=== PATIENT | female | born 1955 | race Caucasian/White ===

== ENCOUNTER 2023-03-23 20:25 | Emergency (ER) | payer MEDICARE, MEDICAID, SELFPAY ==
[2023-03-23 20:40] VITALS: BP 164/72; PULSE 93; RESP 18; TEMP 36.7; O2SAT 94; BMI 26.1
--- NOTE | 2023-03-23 20:43 | XR_ITS ---
The [address] [address] Patient Name: ARA DOUGLASS MRN: [id number] date: 1955 Sex: F Assigned Patient Location: ER Current Patient Location: ER Accession/Order Number: [id number] Exam Date: 03/23/2023 21:19 Report Date: 03/23/2023 21:33 At the request of: ORTIZ URIBE Procedure: XR chest 2V EXAM: XR chest 2V HISTORY: cough COMPARISON: None. TECHNIQUE: PA and lateral chest FINDINGS: Mild bibasilar interstitial prominence. No pneumothorax, pleural effusion or definite consolidation. Normal heart size. No acute osseous abnormality. XR/XR chest 2V IMPRESSION: Bibasilar interstitial prominence could reflect developing infectious process versus small airway disease. Electronically authenticated by: JOSE L ESQUIVEL Date: 03/23/2023 21:33
--- NOTE | 2023-03-23 21:09 | ED.URI1 ---
HPI - URI/Sore Throat General Chief Complaint: Upper Respiratory Infection Stated Complaint: Upper Respiratory Infection Time Seen by Provider: 03/23/23 21:02 Source: patient History of Present Illness HPI Narrative: 67-year-old female presents for cough. It is productive and she is coughing up green to yellow phlegm and she has had it for a week. She has been taking azke-zed-eisxjjt medications. She has nebulizer at home and took treatment as well. No fever. Related Data Previous Rx's Medication Instructions Recorded azithromycin 250 mg tablet See Rx Instructions PO .COMPLEX #6 03/23/23 (Zithromax Z-Dung) tabs prednisone 10 mg tablet See Rx Instructions .Route 03/23/23 .COMPLEX #30 tabs Allergies Allergy/AdvReac Type Severity Reaction Status Date / Time No Known Drug Allergies Allergy Verified 03/23/23 20:42 Review of Systems ROS Narrative A ten point review of systems is negative except as noted above. Exam Narrative Exam Narrative: Nurses note and vital signs reviewed and patient is not hypoxic. General: The patient appears well and in no apparent distress. Patient is resting comfortably on cart. Skin: Warm, dry, no pallor noted. There is no rash noted. Head: Normocephalic, atraumatic Eye: Normal conjunctiva, no drainage Ears, Nose, Mouth, and Throat: oral mucosa is moist. Nares patent. Cardiovascular: Regular Rate and Rhythm Respiratory: Patient is in no distress, no accessory muscle use, lungs are clear to auscultation, no wheezing, rales or rhonchi, good air movement present Back: non-tender GI: no tenderness to palpation, no masses appreciated. No rebound, guarding, or rigidity noted. Musculoskeletal: The patient has no evidence of calf tenderness, no pitting edema, symmetrical pulses noted bilaterally Neurological: A&O, normal speech Psychiatric: Cooperative Constitutional Vital Signs, click to edit/add: Last Vital Signs Temp 98.1 F 03/23/23 20:40 Pulse 93 H 03/23/23 20:40 Resp 18 03/23/23 20:40 BP 164/72 H 03/23/23 20:40 Pulse Ox 94 L 03/23/23 20:40 O2 Del Method Room Air 03/23/23 20:40 Course Vital Signs Vital signs: Vital Signs Temperature 98.1 F 03/23/23 20:40 Pulse Rate 93 H 03/23/23 20:40 Respiratory Rate 18 03/23/23 20:40 Blood Pressure 164/72 H 03/23/23 20:40 Pulse Oximetry 94 L 03/23/23 20:40 Oxygen Delivery Method Room Air 03/23/23 20:40 Temperature 98.1 F 03/23/23 20:40 Pulse Rate 93 H 03/23/23 20:40 Respiratory Rate 18 03/23/23 20:40 Blood Pressure 164/72 H 03/23/23 20:40 Pulse Oximetry 94 L 03/23/23 20:40 Oxygen Delivery Method Room Air 03/23/23 20:40 MDM - URI/Sore Throat MDM Narrative Medical decision making narrative: COVID and influenza test are negative. Chest x-ray shows questionable infiltrate and she started on Zithromax. She was given IM Solu-Medrol and prescribed prednisone. Treatment diagnosis and follow-up were discussed with the patient. Differential Diagnosis Differential diagnosis: Likely upper respiratory infection, viral infection, bronchitis, influenza and other (COVID, pneumonia) Lab Data Attestation: I reviewed the patient's lab results. Labs: Lab Results 03/23/23 Range/Units 20:46 Influenza Type A Ag Negative Influenza Type B Ag Negative SARS-CoV-2 Ag (CV2AG) Negative (NEGATIVE) Imaging Data Chest x-ray: Radiologist's impression: ITS Impressions Chest X-Ray 03/23/23 20:43 IMPRESSION: Bibasilar interstitial prominence could reflect developing infectious process versus small airway disease. Electronically authenticated by: JOSE L ESQUIVEL Date: 03/23/2023 21:33 Discharge Plan Discharge Chief Complaint: Upper Respiratory Infection Clinical Impression: Upper respiratory infection Patient Disposition: Home, Self-Care Time of Disposition Decision: 21:42 Condition: Good Mode of Transportation: Private Vehicle Prescriptions / Home Meds: New prednisone 10 mg tablet See Rx Instructions .ROUTE .COMPLEX Qty: 30 0RF Rx Instructions: 4 by mouth daily for three days then 3 by mouth daily for three days then 2 by mouth daily for three days then 1 by mouth daily for three days azithromycin [Zithromax Z-Dung] 250 mg tablet See Rx Instructions .ROUTE .COMPLEX Qty: 6 0RF Rx Instructions: For 250 mg dose pack: take 500 mg today (day 1), then 250 mg for 4 days (days 2-5) Instructions: Upper Respiratory Infection (ED) Stand Alone Forms: Portal Instructions Referrals: George Dubose DO [Primary Care Provider] - 1 week
[2023-03-23 21:29] LABS: Influenza Virus A Antigen Negative; Influenza Virus B Antigen Negative; Internal Control Within Normal Limits; SARS-CoV-2 Ag NEGATIVE (NEGATIVE)
[2023-03-23] MEDS: AZITHROMYCIN 250 MG TABLET 500 MG PO (21:59)
[2023-03-23] MEDS: METHYLPREDNISOLONE SOD SUCC PF 125 MG/2 ML VIAL IM (21:59)
== END 2023-03-23 22:06 | disposition home or self-care (01) ==
PROVIDERS: Emergency Provider Emergency Medicine; PCP Internal Medicine
DX: J06.9 Acute upper respiratory infection, unspecified (principal); Z20.822 Contact with and (suspected) exposure to COVID-19
CPT/HCPCS: 71046; 87804; 87811; 96372; 99285; J2930

== ENCOUNTER 2024-09-01 09:06 | Outpatient (OUT) | payer MEDICARE, MEDICAID, SELFPAY ==
--- NOTE | 2024-09-01 09:13 | US_ITS ---
[place] [id number] Patient Name: ARA DOUGLASS MRN: [id number] date: 1955 Sex: F Assigned Patient Location: US Current Patient Location: US Accession/Order Number: [id number] Exam Date: 09/01/2024 10:47 Report Date: 09/01/2024 10:49 At the request of: SARAH JULIO DO Procedure: US right upper quadrant LIMITED ABDOMINAL ULTRASOUND: CLINICAL HISTORY: Right Upper Quadrant Pain COMPARISON: None TECHNIQUE: Grayscale and color Doppler images of the right upper quadrant organs were obtained. FINDINGS: Pancreas: Visualized portions appear unremarkable. Liver: Visualized portions appear unremarkable. Gallbladder: Cholelithiasis. No wall thickening. Negative Barriga sign. CBD: 3.9 mm. RT KIDNEY: No Hydronephrosis US/US right upper quadrant IMPRESSION: CHOLELITHIASIS. NO ACUTE PROCESS IS SEEN.. Impression dictated by: Jorge Coulter Jr., D.O. 09/01/2024 10:49 AM Dictation Location: [place] [address] Electronically authenticated by: [id number] Date: 09/01/2024 10:49
--- OUTSIDE RECORDS SUMMARY | 2024-09-01 09:31 | XMS_ITS | CCD ---
Author Organization [facility] Care Team Providers Care Education And Development Manager Name Role Phone DR GEORGE JULIO Primary Care Unavailable NORI, DR SMITH Admitting Unavailable NORI, DR SMITH Attending Unavailable NORI, DR SMITH Primary Care Unavailable NORI, DR SMITH Admitting Unavailable NORI, DR SMITH Attending Unavailable NORI, DR SMITH Primary Care Unavailable VENITA, DR MANDI Randolph Attending Unavailable VENITA, DR MANDI Randolph Consulting Unavailable VENITA, DR MANDI Randolph Admitting Unavailable George Julio Unavailable George Julio DO Primary Care Provider George Julio DO Attending Provider Medications Current Medications Medication Drug Class(es) Dates Sig (Normalized) Sig (Original) omeprazole 20 mg delayed release oral capsule (1 source) Proton Pump Inhibitor Start: 08-18-2024 take 1 capsule by mouth once daily Omeprazole 20 mg capsule,delayed release(/EC) Active 20 MG PO Daily August 18, 2024 12:00am Complies with drug therapy Completed/Discontinued Medications Medication Drug Class(es) Dates Sig (Normalized) Sig (Original) atenolol 25 mg oral tablet (12 sources) beta-Adrenergic [place] Start: 07-02-2023 End: 07-02-2023 take 1 tablet by mouth once daily Atenolol 25 mg tablet Discontinued 25 MG PO Daily July 02, 2023 12:54pm July 02, 2023 1:01pm take 1 tablet by debbie th every twenty-four hours Atenolol 25 MG 1 tablet Orally Once a day Active Lidocaine (2 sources) Antiarrhythmic, Amide Local Anesthetic Start: 06-14-2022 Lidocaine June, 10 mg pravastatin sodium 40 mg oral tablet (12 sources) HMG-CoA Reductase Inhibitor Start: 07-02-2023 End: 07-02-2023 take 1 tablet by mouth once daily Pravastatin 40 mg tablet Discontinued 40 MG PO Daily July 02, 2023 12:55pm July 02, 2023 1:01pm take 1 tablet by debbie th every twenty-four hours Pravastatin Sodium 40 MG 1 tablet Orally Once a day Active triamcinolone acetonide 40 mg/ml injectable suspension (2 sources) Corticosteroid Start: 06-14-2022 Kenalog-40 June, 40 mg Problems Active Problems Problem Classification Problem Date Documented Da te Episodic/Chronic Abdominal pain (1 source) Right upper quadrant pain Episodic Cardiac dysrhythmias (1 source) Unspecified atrial fibrillation; Translations: [UNSPECIFIED ATRIAL FIBRILLATION] Onset: 12-07-2020 Chronic Chronic obstructive pulmonary disease and bronchiectasis (5 sources) Chronic bronchitis; Translations: [Unspecified chronic bronchitis] 07-15-2023 Chronic Disorders of lipid metabolism (13 sources) Pure hypercholesterolemi a, unspecified; Translations: [Hypercholesterolem ia] Onset: 12-07-2020 Chronic Essential hypertension (14 sources) Essential hypertension; Translations: [Essential (primary) hypertension] Chronic Headache; including migraine (1 source) Headache; including migraine; Translations: [HEADACHE UNSPECIFIED] Onset: 01-20-2021 Other and unspecified benign neoplasm (3 sources) Benign neoplasm of colon; Translations: [Benign neoplasm of colon, unspecified] Episodic Other and unspecified benign neoplasm (2 sources) Benign neoplasm of colon, unspecified; Translations: [Benign neoplasm of colon] Episodic Other and unspecified benign neoplasm (4 sources) Adenomatous polyp of colon ; Translations: [Benign neoplasm of colon, unspecified] 07-15-2023 Episodic Other connective tissue disease (1 source) Pain in right arm; Translations: [PAIN IN RIGHT ARM] Onset: 01-20-2021 Episodic Other connective tissue disease (3 sources) Lateral epicondylitis; Translations: [Lateral epicondylitis, right elbow] Episodic Other lower respiratory disease (3 sources) Cough; Translations: [Cough] Episodic Other nervous system disorders (1 source) Brachial plexus disorders; Translations: [BRACHIAL PLEXUS DISORDERS] Onset: 12-07-2020 Chronic Other non-traumatic joint disorders (2 sources) Rotator cuff arthropathy of left shoulder; Translations: [Other specific arthropathies, not elsewhere classified, left shoulder] Chronic Other non-traumatic joint disorders (1 source) Other specific arthropathies, not elsewhere classified, left shoulder Chronic Other non-traumatic joint disorders (1 source) Pain in left shoulder Episodic Other nutritional; endocrine; and metabolic disorders (3 sources) Overweight; Translations: [Overweight] Episodic Other nutritional; endocrine; and metabolic disorders (1 source) Overweight Episodic Other screening for suspected conditions (not mental disorders or infectious disease) (7 sources) Encounter for screening mammogram for malignant neoplasm of breast; Translations: [Patient encounter status] Episodic Skin and subcutaneous tissue infections (3 sources) Cellulitis and abscess of trunk; Translations: [Cutaneous abscess of abdominal wall] Episodic Spondylosis; intervertebral disc disorders; other back problems (20 sources) Other spondylosis with radiculopathy, cervical region; Translations: [Cervical spondylosis without myelopathy] Onset: 02-13-2021 Chronic Spondylosis; intervertebral disc disorders; other back problems (3 sources) Neck pain; Translations: [Cervicalgia] Episodic Sprains and strains (1 source) Strain of muscle(s) and tendon(s) of the rotator cuff of left shoulder, initial encounter Episodic Substance-related disorders (12 sources) Nicotine dependence; Translations: [Nicotine dependence, cigarettes, uncomplicated] Chronic Comment on above: Age started 17, ppd 1 Past or Other Problems Problem Classification Problem Date Documented Da te Episodic/Chronic Other aftercare (1 source) Other terminal computer operator (current) drug therapy; Translations: [OTH CARE HOME CURRENT DRUG THERAPY] Onset: 12-07-2020 Episodic Other non-traumatic joint disorders (4 sources) Pain in right shoulder; Translations: [PAIN IN RIGHT SHOULDER] Onset: 12-05-2020 Episodic Other non-traumatic joint disorders (1 source) Pain in right elbow; Translations: [PAIN IN RIGHT ELBOW] Onset: 12-07-2020 Episodic Other non-traumatic joint disorders (1 source) Pain in right wrist; Translations: [PAIN IN RIGHT WRIST] Onset: 12-07-2020 Episodic Vital Signs Date Time Vital Sign Value Performing Clinician Facility 08-18-2024 15:47-0400 Body height 172.72 cm [employer] Work Phone: [facility] 08-18-2024 15:47-0400 Body mass index (BMI) [Ratio] 26.9 kg/m2 [employer] Work Phone: [facility] 08-18-2024 15:47-0400 Body weight 80.51 kg George Ball DO Work Phone: [facility] 08-18-2024 15:47-0400 Diastolic blood pressure 73 mm[Hg] George Ball DO Work Phone: [facility] 08-18-2024 15:47-0400 Heart rate 73 /min George Ball DO Work Phone: [facility] 08-18-2024 15:47-0400 Respiratory rate 12 /min George Ball DO Work Phone: [facility] 08-18-2024 15:47-0400 Systolic blood pressure 116 mm[Hg] George Ball DO Work Phone: [facility] 07-17-2023 11:29-0400 Body height 172.72 cm [facility] 07-17-2023 11:29-0400 Body mass index (BMI) [Ratio] 26.8 kg/m2 [facility] 07-17-2023 11:29-0400 Body weight 80.05 kg [facility] 07-17-2023 11:29-0400 Diastolic blood pressure 72 mm[Hg] [facility] 07-17-2023 11:29-0400 Heart rate 69 /min [facility] 07-17-2023 11:29-0400 Respiratory rate 12 /min [facility] 07-17-2023 11:29-0400 Systolic blood pressure 109 mm[Hg] [facility] 09-27-2022 14:45-0400 Body height 172.72 cm George Ball Other [facility] Other 09-27-2022 14:45-0400 Body mass index (BMI) [Ratio] 26.54 kg/m2 George Ball Other [facility] Other 09-27-2022 14:45-0400 Body weight 79.2 kg George Ball Other [facility] Other 08-16-2023 14:45-0400 Diastolic blood pressure 83 mm[Hg] George Ball Other [facility] Other 09-27-2022 14:45-0400 Respiratory rate 12 /min George Ball Other [facility] Other 09-27-2022 14:45-0400 Systolic blood pressure 135 mm[Hg] George Ball Other [facility] Other 06-14-2022 15:00-0400 Body height 172.72 cm George Ball Other [facility] Other 06-14-2022 15:00-0400 Body mass index (BMI) [Ratio] 26.54 kg/m2 George Ball Other [facility] Other 06-14-2022 15:00-0400 Body weight 79.2 kg George Ball Other [facility] Other 06-14-2022 15:00-0400 Diastolic blood pressure 76 mm[Hg] George Ball Other [facility] Other 06-14-2022 15:00-0400 Systolic blood pressure 133 mm[Hg] George Ball Other [facility] Other 06-08-2022 10:15-0400 Body height 172.72 cm George Ball Other [facility] Other 06-08-2022 10:15-0400 Body mass index (BMI) [Ratio] 26.51 kg/m2 Goerge Ball Other [facility] Other 06-08-2022 10:15-0400 Body weight 79.11 kg George Ball Other [facility] Other 06-08-2022 10:15-0400 Diastolic blood pressure 76 mm[Hg] George Julio Other [facility] Other 06-08-2022 10:15-0400 Respiratory rate 12 /min George Julio Other [facility] Other 06-08-2022 10:15-0400 Systolic blood pressure 125 mm[Hg] George Julio Other [facility] Other Encounters Encounter Date Encounter Type Care Provider Facility Start: 08-18-2024 End: 08-18-2024 ambulatory George Jluio DO Work Phone: [facility] Work Phone: Start: 08-18-2024 End: 08-18-2024 Patient encounter procedure George Julio DO -[facility] Work Phone: Start: 12-12-2023 End: 12-12-2023 ambulatory [facility] Work Phone: Start: 12-12-2023 End: 12-12-2023 Patient encounter procedure [facility] Work Phone: Start: 07-17-2023 End: 07-17-2023 ambulatory [facility] Work Phone: Start: 07-17-2023 End: 07-17-2023 Encounter for general adult medical examination without abnormal findings [facility] Start: 07-17-2023 End: 07-17-2023 Patient encounter procedure [facility] Work Phone: Start: 07-02-2023 Non-patient / Non-visit [facility] Work Phone: Start: 09-27-2022 End: 09-27-2022 ambulatory George Julio Other [facility] Other Start: 09-27-2022 Office outpatient vi sit 15 minutes George Ball [facility] Start: 06-14-2022 End: 06-14-2022 ambulatory George Nori Other [facility] Other Start: 06-14-2022 Office outpatient vi sit 15 minutes George Julio [facility] Start: 06-08-2022 End: 06-08-2022 ambulatory George Julio Other [facility] Other Start: 06-08-2022 Encounter for genera l adult medical examination without abnormal findings George Julio [facility] Start: 06-08-2022 Periodic preventive med est patient 40-64yrs George Julio [facility] Start: 02-13-2021 End: 03-25-[address] GEORGE JULIO Facility:[facility] Start: 01-18-2021 End: 02-11-[address] GEORGE JULIO Facility:[facility] Start: 12-05-2020 End: 12-05-[address] GEORGE JULIO Facility:[facility] Plan of Treatment Date Care Activity Detail Author MG Breast - bilateral Screening [facility] Immunizations Immunization Date Immunization Notes Care Provider Fa melody 12-12-2023 influenza, high dose seasonal, preservative-free [facility] 11-28-2018 influenza virus vaccine, split virus (incl. purified surface antigen) George Julio Other [facility] Other 11-28-2018 influenza virus vaccine, unspecified formulation [facility] 11-28-2018 tetanus and diphther ia toxoids, adsorbed, preservative free, for adult use (5 Lf of tetanus toxoid and 2 Lf of diphtheria toxoid) George Julio Other [facility] Payers Date Payer Category Payer Medicaid [id number] 1957 Medicare [id number] 1955 Unknown [id number] 1955 Unknown [id number] 1955 Unknown [id number] Social History Date Type Detail Facility Sex Assigned At [facility] Other Start: [facility] Start: 1955 Sex Assigned At Female [facility] Start: 08-18-2024 Tobacco smoking stat [facility] Smokes tobacco daily (finding) [facility] Sex Female (finding) [facility] Evaluation note 08-12-2024 Note Date & Type Note Facility 08-12-2024 Evaluation note Diagnosis Onset Date Resolution Adenomatous colon polyp acute J sammy2024 3:39pm Chronic bronchitis acute August 182024 3:39pm Hypercholesterolemia acute August 18, 2024 3:39pm Hypertension acute August 18 3:39pm Nicotine addiction acute August 182024 3:39pm Screening mammogram for breast cancer acute August 18, 2024 3:39pm Medicare annual wellness visit, initial noneactive August 18, 2024 3:39pm Screening for colon cancer noneactiv e August 18, 2024 3:39pm [facility] Work Phone: Evaluation note 09-27-2022 Note Date & Type Note Facility 09-27-2022 Evaluation note Encounter Date Diagnosis Assessment Notes Sep, Right upper quadrant abdominal pain (ICD-10 - R10.11) Instructed to follow a low fat diet and hydrate. INstructed to go to ER for increased pain, N/V and dehydration Sep, Primary hypertension (ICD-10 - I10) This patient is instructed to consume a healthy, low-fat, low-salt diet. They are also encouraged to continue exercise to achieve/mainta in a normal BMI. [facility] Other Evaluation note 06-14-2022 Note Date & Type Note Facility 06-14-2022 Evaluation note Encounter Date Diagnosis Assessment Notes June, Acute pain of left shoulder (ICD-10 - M25.512) Ice/heat and ROM exercises IA injection completed w/o complications , patient tolerated procedure. Instructe on ice and rest for next 48 hours. June, Rotator cuff arthropathy of left shoulder (ICD-10 - M12.812) Ice/heat and rest. Tylenol as needed, Voltaren Gel as needed June, Essential hypertension (ICD-10 - I10) This patient is instructed to consume a healthy, low-fat, low-salt diet. They are also encouraged to continue exercise to achieve/maint ain a normal BMI. [facility] Other Evaluation note 06-08-2022 Note Date & Type Note Facility 06-08-2022 Evaluation note Encounter Date Diagnosis Assessment Notes May, Wellness examination (ICD-10 - Z00.00) May, Primary hypertension (ICD-10 - I10) May, Elevated cholesterol (ICD-10 - E78.00) May, Cigarette nicotine dependence without complication (ICD-10 - F17.210) This patient has been encouraged to quit tobacco use immediately. They are aware of the hazards associated with tobacco use, including but not limited to respiratory infections, vascular disease and cancers. May, Strain of left rotator cuff capsule, initial encounter (ICD-10 - S46.012A) Handouts w/ exercises Ice/heat, Voltaren Gel, Motrin and Tylenol Offered to inject if desires Offered PT May, Overweight (BMI 25.0-29.9) (ICD-10 - E66.3) This patient has been instructed on a low-fat, high-fiber diet. They are instructed to reduce calories, portion sizes and snacks. It is recommended that they exercise for 30 minutes, 3-5 times weekly. May, Lumbar spondylosis (ICD-10 - M47.816) The patient is instructed to avoid bending, twisting or lifting. They are to use intermittent heat and ice as needed. They may schedule a massage or gentle manipulation. They may safely use Tylenol as needed. May, Tubulovillous adenoma polyp of colon (ICD-10 - D12.6) Surveillance scopes planned. NO change in bowel habits, no melena or hematochezia, no abdominal pain May, Screening mammogram for breast cancer (ICD-10 - Z12.31) [facility] Other Evaluation note Note Date & Type Note Facility Evaluation note Diagnosis Onset Date Adenomatous colon polyp acut e Cervical spondylosis acute Chronic bronchitis acute Hypercholesterolemia acute Hypertension acute Lumbar spondylosis acute Nicotine addiction acute Screening mammogram for breast cancer acute Welcome to Medicare preventive visit noneactive [facility] Work Phone: Evaluation note Note Date & Type Note Facility Evaluation note No assessment information availa ble [facility] Work Phone: History general Narrative - Reported Note Date & Type Note Facility History general Narrative - Reported Type Medical History Lumbar spondylosis Medical History Tubulovillous adenoma polyp of c olon Medical History Abdominal wall abscess Medical History Essential hypertension Medical History Cervical spondylosis Medical History Cigarette nicotine d ependence, uncomplicated Medical History Epicondylitis, lateral, right Medical History Neck pain Medical History Cervical spondylosis with radiculopathy Medical History Cough Medical History Hyperlipidemia type II Medical History Body mass index (BMI) of 25.0 to 29.9 Surgical History Colonoscopy 10/2017 Hospitalization History see surgical history [facility] Other Reason for referral (narrative) Note Date & Type Note Facility Reason for referral (narrative) No reason for referral information available [facility] Work Phone: Summary Purpose Family History Relationship Condition Age at Onset Recorded Date/T shell father Heart disease Unknown Not Specified Heart disease Unknown sister Malignant neoplasm Unknown Relationship Condition Age at Onset Recorded Date/T shell father Heart disease Unknown mother Heart disease Unknown sister Malignant neoplasm Unknown Advance Directives Advance Directive Response Recorded Date/ Time Advance Directives No July 01 12:55pm Chief Complaint and Reason for Visit Chief Complaint Amb Documentation check up Reason for Visit Adenomatous colon po lyp Cervical spondylosis Chronic bronchitis Hypercholesterolemia Hypertension Lumbar spondylosis Nicotine addiction Screening mammogram for breast cancer Welcome to Medicare preventive visit Chief Complaint flu shot Chief Complaint Admit Date Discuss Medical Concerns August 18, 2024 3:39pm Reason for Visit Admit Date Adenomatous colon polyp August 18, 2024 3 :39pm Chronic bronchitis August 18, 2024 3:39p m Hypercholesterolemia August 18, 2024 3:39 pm Hypertension August 18, 2024 3:39p m Nicotine addiction August 18, 2024 3:39p m Screening mammogram for breast cancer Ju 2024 3:39pm Medicare annual wellness visit, initial August 18, 2024 3:39pm Screening for colon cancer August 18 3:39pm Additional Source Comments INFORMATION SOURCE (unrecogn ized section and content) DATE CREATED AUTHOR 04/14/2021 [facility] REASON FOR VISIT (unrecogniz ed section and content) Left ArmSHOULDER INJECTIONGa llbladder Issues Care Teams (unrecognized sec tion and content) Team Status: Active Member Role Status Dates George Julio , Primary Care Provider Active Team Status: Inactive Member Role Status Dates George Julio DO Primary Care Provide r, Attending Provider Active Start: December 12, 2023 End: December 12, 2023 Team Status: Active Member Role Status Dates George Julio , Primary Care Provider Active Start: July 02, 2023 [employer] Attending Provider Active Start : July 02, 2023 Team Status: Inactive Member Role Status Dates George Julio DO Primary Care Provide r, Attending Provider Active Start: July 17, 2023 End: July 17, 2023 Team Status: Inactive Member Role Status Dates George Julio DO Primary Care Provider Active Start: August 18, 2024 End: August 18, 2024 George Julio DO Attending Provider Active Sta rt: August 18, 2024 End: August 18, 2024 Goals (unrecognized section and content) Goals may be documented in a n alternate section FOR RECORDS PERTAINING TO PATIENTS WHO ARE OR HAVE BEEN ENROLLED IN A CHEMICAL DEPENDENCY/SUBSTANCEABUSE PROGRAM, SOME INFORMATION MAY BE OMITTED. This clinical summary was aggregated from multiple sources. Caution should be exercised in using it in the provision of clinical care. This summary normalizes information from multiple sources, and as a consequence, information in this document may materially change the coding, format and clinical context of patient data. In addition, data may be omitted in some cases. CLINICAL DECISIONS SHOULD BE BASED ON THE PRIMARY CLINICAL RECORDS. [facility]. provides no warranty or guarantee of the accuracy or completeness of information in this document.
[2024-09-01 10:40] LABS: Hematocrit 43.6 % (36.0-48.0); Hemoglobin 14.5 g/dL (12.0-16.0); Immature Granulocytes Abs Auto 0.02 10^3/uL (0.00-0.03); Immature Granulocytes Pct Auto 0.2 % (0.0-0.5); Lymphocytes Absolute Auto 2.3 10^3/uL (1.2-3.8); Mean Corpuscular HGB Conc 33.3 g/dL (29.9-35.2); Mean Corpuscular Hemoglobin 31.0 pg (26.7-34.0); Mean Corpuscular Volume 93.2 fL (81.0-99.0); Platelet Count 250 10^3/uL (150-450); Red Blood Count 4.68 10^6/uL (4.20-5.40); White Blood Count 9.6 10^3/uL (4.0-11.0)
[2024-09-01 11:49] LABS: Alanine Aminotransferase 20 U/L (14-59); Albumin Globulin Ratio 1.0; Albumin Level 3.4 g/dL (3.4-5.0); Alkaline Phosphatase 69 U/L (46-116); Anion Gap 14.1; Aspartate Amino Transferase 14 U/L (15-37); Blood Urea Nitrogen 14.0 mg/dL (7.0-18.0); Calcium 9.0 mg/dL (8.5-10.1); Carbon Dioxide 28.2 mmol/L (21.0-32.0); Chloride 106 mmol/L (98-107); Cholesterol 246 mg/dL (<=200); Estimated GFR (African America >60 (>=60 mL/min/1.73m^2); Estimated GFR (Non-African Ame >60 (>=60 mL/min/1.73m^2); Globulin 3.4 g/dL; Glucose 91 mg/dL (74-106); HDL Cholesterol 64 mg/dL (40-60); Potassium 4.3 mmol/L (3.5-5.1); Sodium 144 mmol/L (136-145); Total Protein 6.8 g/dL (6.4-8.2); Triglycerides 102 mg/dL (<=150); VLDL CHOLESTEROL 20.4 mg/dL
== END 2024-09-01 09:07 | disposition home or self-care (01) ==
LOC: US 09:07
PROVIDERS: PCP Internal Medicine; Visit Provider Internal Medicine
DX: R10.11 Right upper quadrant pain (principal); I10 Essential (primary) hypertension; E78.00 Pure hypercholesterolemia, unspecified; K80.20 Calculus of gallbladder without cholecystitis without obstruction
CPT/HCPCS: 36415; 76705; 80053; 80061; 85025